=== PATIENT | male | born 1955 | race Caucasian/White ===

== ENCOUNTER 2024-05-28 18:12 | Emergency (ER) | payer MEDICARE, OTHER ==
[2024-05-28] MEDS ORDERED: Nitroglycerin 0.4 MG Tab.SL SL PRN (18:52)
[2024-05-28 18:57] LABS: BASOPHILS ABSOLUTE AUTO 0.04 K/uL (0.00-0.10); BASOPHILS PERCENT AUTO 0.8 % (0.1-1.3); EOSINOPHILS ABSOLUTE AUTO 0.21 K/uL (0.00-0.40); EOSINOPHILS PERCENT AUTO 4.1 % (0.0-5.4); HEMATOCRIT 40.4 % (38.4-49.7); HEMOGLOBIN 13.8 g/dL (12.9-16.9); IMMATURE GRAN ABSOLUTE AUTO 0.01 K/uL (0.00-0.23); IMMATURE GRAN PERCENT AUTO 0.2 % (0.0-0.7); LYMPHOCYTES ABSOLUTE AUTO 1.73 K/uL (0.8-3.3); LYMPHOCYTES PERCENT AUTO 33.9 % (11.4-47.7); MEAN CORPUSCULAR HGB CONC 34.2 g/dL (31.6-35.5); MEAN CORPUSCULAR VOLUME 90.8 fL (81.4-99.0); MONOCYTES ABSOLUTE AUTO 0.64 K/uL (0.20-0.90); MONOCYTES PERCENT AUTO 12.5 % (3.3-12.6); NEUTROPHILS ABSOLUTE AUTO 2.47 K/uL (1.0-7.6); NEUTROPHILS PERCENT AUTO 48.5 % (40.0-78.1); PLATELET COUNT,PLT 168 K/uL (130-375); RED BLOOD CELL COUNT 4.45 M/uL (4.14-5.76); WHITE BLOOD CELL COUNT,WBC 5.1 K/uL (3.2-11.0)
[2024-05-28 19:20] LABS: ANION GAP 6.4 mmol/L (5.0-14.0); CALCIUM 8.9 mg/dL (8.5-10.1); CREATININE 1.3 mg/dL (0.8-1.3); EST CRCL DRUG DOSING (CG) 53.63 mL/min; POTASSIUM,K 3.7 mmol/L (3.6-5.2); TROPONIN I HIGH SENSITIVITY 10.7 pg/mL (<=60.3)
== END 2024-05-28 21:45 | disposition home or self-care (01) ==
LOC: JP.ED 18:12
DX: R07.89 Other chest pain (principal); R06.02 Shortness of breath; Z79.899 Other long term (current) drug therapy
CPT/HCPCS: 36415; 71046; 71046-26; 80048; 83880; 84484; 85025; 85379; 93005; 99285